=== PATIENT | male | born 1995 | race Caucasian/White ===

== ENCOUNTER → 2019-08-23 | Outpatient (CLI) | payer OTHER ==
--- NOTE | 2019-08-23 11:26 | Diagnostic Imaging Report ---
INDICATION: Injury to right ankle 2 weeks ago, continued pain. TECHNIQUE: Three views of the right ankle. CORRELATION STUDY: None. FINDINGS: The alignment is anatomic. Small bone fragments project at the lateral aspect of the ankle lateral to the talus and inferior to the tip of the fibula. The distal tibia and talar dome are intact. The Ankle mortise is maintained. Mild soft tissue swelling is present. IMPRESSION: Small bone density at the lateral aspect of the ankle. This could be reflective of a previous, remote injury but a small avulsion fracture would be difficult to exclude. Correlation with symptoms is recommended. Dictated by: Dictated on workstation # [id number]
== END ==
LOC: RAD FS 09:01
PROVIDERS: ATTEND Nurse Practitioner
DX: S99.911A Unspecified injury of right ankle, initial encounter (principal); X58.XXXA Exposure to other specified factors, initial encounter
CPT/HCPCS: 73610